=== PATIENT | male | born 1995 | race Caucasian/White ===

== ENCOUNTER 2019-08-13 20:35 | Emergency (ER) | payer OTHER, BC ==
[~2019-08-13] VITALS: Ht 175.3 cm; Wt 111.1 kg
== END 2019-08-13 22:45 | disposition home or self-care (01) ==
LOC: ER 20:35
DX: S67.190A Crushing injury of right index finger, initial encounter (principal); S67.192A Crushing injury of right middle finger, initial encounter; S67.194A Crushing injury of right ring finger, initial encounter; Z87.891 Personal history of nicotine dependence; W23.0XXA Caught, crushed, jammed, or pinched between moving objects, initial encounter; Y99.0 Civilian activity done for income or pay
CPT/HCPCS: 73130; 90471; 90714; 99283-25